=== PATIENT | female | born 1960 | race Caucasian/White ===

== ENCOUNTER → 2020-06-27 11:46 | Outpatient (CLI) | payer OTHER, SELFPAY ==
--- NOTE | ~2020-06-27 | XR_ITS ---
EXAMINATION: XR ankle RT min 3V DATE: 06/27/2020 12:47 INDICATION: Right foot and ankle pain TECHNIQUE: 1. Anteroposterior, mortise, additional oblique and lateral view of the right ankle were obtained. 2. Dorsoplantar, two oblique and lateral views of the right foot were obtained. COMPARISON: None. FINDINGS: Alignment of the foot and ankle is normal. No fracture or osteochondral lesion. Mild osteoarthritis a t a few of the interphalangeal joints. No ankle joint effusion. The soft tissues are unremarkable. IMPRESSION: 1. 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 Otherwise unremarkable right foot and ankle radiographs. Reviewed, dictated and finalized at location A. IMPRESSION: 1. 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 Otherwise unrema rkable right foot and ankle radiographs.
--- NOTE | ~2020-06-27 | XR_ITS ---
XR foot RT min 3V DATE: 06/27/2020 12:47 INDICATION: Right foot pain TECHNIQUE: 4 views COMPARISON: None FINDINGS: No fracture or dislocation, periosteal reaction or bone destruction. Joint spaces are prese rved. No erosive changes. IMPRESSION: Negative Reviewed, dictated and finalized at location A. IMPRESSION: Negative
== END ==
PROVIDERS: PCP Family Medicine; Visit Provider Family Medicine
DX: M25.571 Pain in right ankle and joints of right foot (principal); M19.071 Primary osteoarthritis, right ankle and foot
CPT/HCPCS: 73610; 73630

== ENCOUNTER 2021-09-28 00:30 | Day surgery (SDC) | payer OTHER, SELFPAY ==
[2021-09-16 15:07] VITALS: BMI 24.9
--- NOTE | 2021-09-26 09:41 | PM.HPGS ---
History of Present Illness History of Present Illness Consent: Risks, benefits, and alternatives have been discussed and questions answered. Patient agrees to proceed with procedure. Chief complaint: hx of colon polyps Narrative: Belen Wayne is a 60 year old female referred for colon cancer screening. She has a history of adenomatous polyp Review of Systems Review of Systems: All systems reviewed & are unremarkable except as noted in HPI and below PMFSH Past Medical History Medical History Emphysema lung History of vaginal delivery Open angle primary glaucoma Surgical History Surgical History History of cholecystectomy History of umbilical hernia repair Status post hysterectomy Status post laparoscopic cholecystectomy Status post tonsillectomy Family History Family History Grandparent Carcinoma of colon Father Family history of lung cancer Other Family history of malignant neoplasm Social History Social History Smoking status: Never smoker Second hand tobacco smoke exposure: No Alcohol intake: current Substance use: never Substance use type: does not use Living arrangements: with family Gender identity (if verbalized by the patient): Female Spiritual care concerns: No Meds Home Medications and Allergies Home Medications Medication Instructions Recorded Confirmed Type bimatoprost 0.01 % eye drops 1 drop EACH EYE DAILY 09/10/19 09/28/21 History cetirizine 10 mg tablet 10 mg PO DAILY 09/10/19 09/28/21 History hydroxychloroquine 200 mg tablet 200 mg PO DAILY 09/10/19 09/28/21 History timolol maleate 0.5 % eye drops 1 drop EACH EYE Q12H 09/10/19 09/28/21 History ascorbate calcium (vitamin C) 500 500 mg PO DAILY 12/29/20 09/28/21 History mg capsule magnesium hydroxide 400 mg (170 mg 400 mg PO DAILY 12/29/20 09/28/21 History magnesium) chewable tablet albuterol sulfate 90 mcg/actuation 1 inh INHALATION Q4H PRN #6.7 g 02/05/21 09/28/21 Rx aerosol inhaler sodium,potassium,mag sulfates 17.5 See Rx Instructions PO .COMPLEX 08/25/21 09/28/21 Rx gram-3.13 gram-1.6 gram oral soln #354 ml phentermine 15 mg capsule 15 mg PO DAILY #30 cap 09/07/21 09/28/21 Rx biotin 10,000 mcg PO DAILY 09/16/21 09/28/21 History cholecalciferol (vitamin D3) 10,000 unit PO WEEKLY 09/16/21 09/28/21 History [Vitamin D3] pantoprazole 40 mg PO DAILY 09/16/21 09/28/21 History potassium 99 mg PO DAILY 09/16/21 09/28/21 History Allergies Allergy/AdvReac Type Severity Reaction Status Date / Time amoxicillin Allergy Intermediate Itching Verified 09/28/21 07:29 celecoxib Allergy Intermediate Hives Verified 09/28/21 07:29 cobalt Allergy Intermediate Hives Verified 09/28/21 07:29 cranberry Allergy Intermediate Hives Verified 09/28/21 07:29 diphenhydramine Allergy Intermediate Itching Verified 09/28/21 07:29 nickel Allergy Intermediate Hives Verified 09/28/21 07:29 thimerosal Allergy Intermediate Hives Verified 09/28/21 07:29 Exam Const: General: alert Orientation/consciousness: patient oriented x3 Resp: Auscultation: clear to auscultation bilaterally Cardio: Rhythm: regular rhythm GI: GI Palp: Yes Soft to palpation and No Tenderness to palpation present (GI) Neuro: General: patient oriented x3 Assessment and Plan Assessment and plan (1) Colon cancer screening: Code(s): Z12.11 - Encounter for screening for malignant neoplasm of colon Status: Acute Assessment and Plan: Colonoscopy with possible biopsy or polypectomy or cautery or injection of substances.
[2021-09-28 07:28] VITALS: BP 134/76; PULSE 84; RESP 18; TEMP 35.9; O2SAT 98; BMI 24.3
[2021-09-28] MEDS: LACTATED RINGERS 1,000 ML 150 ML IV CONT (07:48)
--- NOTE | 2021-09-28 07:51 | WPDANESEPPF ---
Anes - Initial Pre Proc Eval Procedure: Operation Date: 09/28/21 08:30 Proposed Procedures p Screening Colonoscopy - Gray Daniel MD Date/Time: 09/28/21 07:51 Surgeon: Gray Daniel MD Pre Op Diagnosis: hx of colon polyps Patient Data Age: 60 Gender: F Height: 1.65 m Weight: 66.3 kg Last Vital Signs Temp 35.9 C L 09/28/21 07:28 Pulse 84 09/28/21 07:28 Resp 18 09/28/21 07:28 BP 134/76 09/28/21 07:28 Pulse Ox 98 09/28/21 07:28 Allergies Allergy/AdvReac Type Severity Reaction Status Date / Time amoxicillin Allergy Intermediate Itching Verified 09/28/21 07:29 celecoxib Allergy Intermediate Hives Verified 09/28/21 07:29 cobalt Allergy Intermediate Hives Verified 09/28/21 07:29 cranberry Allergy Intermediate Hives Verified 09/28/21 07:29 diphenhydramine Allergy Intermediate Itching Verified 09/28/21 07:29 nickel Allergy Intermediate Hives Verified 09/28/21 07:29 thimerosal Allergy Intermediate Hives Verified 09/28/21 07:29 Home Medications Medication Instructions Recorded Confirmed Type bimatoprost 0.01 % eye drops 1 drop EACH EYE DAILY 09/10/19 09/28/21 History cetirizine 10 mg tablet 10 mg PO DAILY 09/10/19 09/28/21 History hydroxychloroquine 200 mg tablet 200 mg PO DAILY 09/10/19 09/28/21 History timolol maleate 0.5 % eye drops 1 drop EACH EYE Q12H 09/10/19 09/28/21 History ascorbate calcium (vitamin C) 500 500 mg PO DAILY 12/29/20 09/28/21 History mg capsule magnesium hydroxide 400 mg (170 mg 400 mg PO DAILY 12/29/20 09/28/21 History magnesium) chewable tablet albuterol sulfate 90 mcg/actuation 1 inh INHALATION Q4H PRN #6.7 g 02/05/21 09/28/21 Rx aerosol inhaler sodium,potassium,mag sulfates 17.5 See Rx Instructions PO .COMPLEX 08/25/21 09/28/21 Rx gram-3.13 gram-1.6 gram oral soln #354 ml phentermine 15 mg capsule 15 mg PO DAILY #30 cap 09/07/21 09/28/21 Rx biotin 10,000 mcg PO DAILY 09/16/21 09/28/21 History cholecalciferol (vitamin D3) 10,000 unit PO WEEKLY 09/16/21 09/28/21 History [Vitamin D3] pantoprazole 40 mg PO DAILY 09/16/21 09/28/21 History potassium 99 mg PO DAILY 09/16/21 09/28/21 History Patient hx anesthesia problems: none Family hx anesthesia problems: none Results Review: All pre-operative results and documents have been reviewed as part of the pre-operative evaluation. PMFSH Past Medical History Medical History Emphysema lung History of vaginal delivery Open angle primary glaucoma Surgical History Surgical History History of cholecystectomy History of umbilical hernia repair Status post hysterectomy Status post laparoscopic cholecystectomy Status post tonsillectomy Family History Family History Grandparent Carcinoma of colon Father Family history of lung cancer Other Family history of malignant neoplasm Social History Social History Smoking status: Never smoker Second hand tobacco smoke exposure: No Alcohol intake: current Substance use: never Substance use type: does not use Living arrangements: with family Gender identity (if verbalized by the patient): Female Spiritual care concerns: No Anes - Eval Final PreProcedure Day of Procedure 09/28/21 07:51 Patient weight: normal Heart: regular rate and rhythm Lungs: clear to auscultation Airway: Mallampati scale class II Neurological: alert and oriented Last oral intake: >/= 8 hours ASA classification: II Emergent: no Anesthetic plan: proceed Anesthesia type and monitoring: general GIVS and standard monitoring Results Review: All pre-operative results and documents have been reviewed as part of the pre-operative evaluation. Informed Consent: The patient's anesthetic plan and its attendant risks and benefits were discussed with the patient/famil
[2021-09-28 08:40] VITALS: BP 88/50; PULSE 64; RESP 14; O2SAT 98
[2021-09-28 08:50] VITALS: BP 96/57; PULSE 56; RESP 15; O2SAT 100
[2021-09-28 09:00] VITALS: BP 119/76; PULSE 54; RESP 18; O2SAT 100
== END 2021-09-28 09:10 | disposition home or self-care (01) ==
PROVIDERS: PCP Family Medicine; Visit Provider Internal Medicine Gastroenterology
PROC: 0DJD8ZZ Inspection of Lower Intestinal Tract, Via Natural or Artificial Opening Endoscopic (ICD-10-PCS; CPT 45378; principal; 2021-09-28 08:30)
DX: Z12.11 Encounter for screening for malignant neoplasm of colon (principal); J43.9 Emphysema, unspecified; H40.1190 Primary open-angle glaucoma, unspecified eye, stage unspecified; Z90.49 Acquired absence of other specified parts of digestive tract; Z90.710 Acquired absence of both cervix and uterus; Z80.0 Family history of malignant neoplasm of digestive organs
CPT/HCPCS: 45378; J2704; J7120

== ENCOUNTER → 2022-08-11 15:27 | Outpatient (CLI) | payer OTHER, SELFPAY ==
--- NOTE | ~2022-08-11 | XR_ITS ---
XR hand RT min 3V DATE: 08/11/2022 15:36 INDICATION: Right hand pain TECHNIQUE: 3 views COMPARISON: None FINDINGS: No fracture or dislocation, periosteal reaction or bone destruction, erosive change or jono drocalcinosis. IMPRESSION: No significant abnormality Reviewed, dictated and finalized at location A. IMPRESSION: No significant abnormality
--- NOTE | ~2022-08-11 | XR_ITS ---
XR hand LT min 3V DATE: 08/11/2022 15:36 INDICATION: Right hand pain TECHNIQUE: 3 views COMPARISON: None FINDINGS: There is coronary the triscaphe joint. There is mild osteoarthritis at the first carpometac arpal joint, first metacarpophalangeal joint. No fracture or dislocation, periosteal reaction or bone destruction. IMPRESSION: Mild polyarticular osteoarthritis Reviewed, dictated and finalized at location A.
== END ==
PROVIDERS: PCP Family Medicine; Visit Provider Physician Assistant
DX: M79.642 Pain in left hand (principal); M79.641 Pain in right hand; M19.042 Primary osteoarthritis, left hand
CPT/HCPCS: 73130

== ENCOUNTER → 2023-12-08 15:18 | Outpatient (CLI) | payer OTHER, SELFPAY ==
--- NOTE | ~2023-12-08 | DEXA_ITS ---
Bone Density Report Name: CHEN JOSHI Age: 63 Sex: Female Ethnicity: White Date of : 1960 Indication: postmenopausal; screening for osteoporosis; hysterectomy; Referring Provider: CHALO CABALLERO Study: Bone densitometry was performed. Exam Date: December 08, 2023 Accession number: [id number] Bone Density: Region BMD T-score Z-score Classification AP Spine (L1-L4) 0.798 -2.3 -0.8 Osteopenia Femoral Neck (Left) 0.589 -2.3 -1.0 Osteopenia Total Hip (Left) 0.740 -1.7 -0.7 Osteopenia Femoral Neck (Right) 0.677 -1.6 -0.2 Osteopenia Total Hip (Right) 0.768 -1.4 -0.4 Osteopenia Total Hip Mean 0.754 -1.6 -0.6 Osteopenia World Health Organization criteria for BMD impression classify patients as: Normal (T-score at or above -1.0), Osteopenia (T-score between -1.0 and -2.5), or Osteoporosis (T-score at or below -2.5). 10-year Fracture Risk(1): Major Osteoporotic Fracture 10% Hip Fracture 1.6% Reported Risk Factors: [place] (), Neck BMD=0.589, BMI=22.6 (1) FRAX(R) Version 3.08. Fracture probability calculated for an untreated patient. Fracture probability may be lower if the patient has received treatment. Clinical Information Provided by Patient: Has used the following medications: Vitamin D Has the following medical conditions: Hysterectomy Patient maximum height was 65.0 Menopause Age: 34 No regular weight bearing exercise Does not regularly consume dairy products Drinks caffeinated beverages Onset of menses at age 13 Number of children 1 Impression: The patient has low bone mass, based on the Total Spine T-score. The patient has an estimated ten-year risk of hip fracture of 1.6% and an estimated ten-year risk of major fracture of 10%, based on the WHO FRAX algorithm. Discussion: BONE DENSITY IS LOW AT ONE OR MORE SKELETAL SITES. This patient's lowest T-score is low at one or more skeletal sites. It meets the World Health Organization's (WHO) criteria for ?low bone mass? (T-score between -1.0 and -2.5). The patient's 10-year risk of fracture as calculated by FRAX is less than the threshold where pharmacological therapy is recommended by the National Osteoporosis Foundation (NOF). However, all treatment decisions require clinical judgment and consideration of individual patient factors, including patient preferences, comorbidities, previous drug use, risk factors not captured in the FRAX model (e.g., frailty, falls, vitamin D deficiency, increased bone turnover, interval significant decline in bone density) and possible under or overestimation of fracture risk by FRAX. The patient should follow a healthful lifestyle (good nutrition with adequate calcium and vitamin D, and appropriate weight-bearing exercise). Follow-Up: Consider repeating this study in 2 to 3 years to reassess
== END ==
PROVIDERS: PCP Obstetrics & Gynecology; Visit Provider Obstetrics & Gynecology
DX: Z78.0 Asymptomatic menopausal state (principal); M85.89 Other specified disorders of bone density and structure, multiple sites
CPT/HCPCS: 77080

== ENCOUNTER 2024-04-09 13:10 | Outpatient (CLI) | payer OTHER, SELFPAY ==
--- NOTE | ~2024-04-09 | MM_ITS ---
EXAMINATION: MM screening [place] BI w angela HISTORY: Screening mammogram TECHNIQUE: Craniocaudal and mediolateral oblique 3-D tomosynthesis images were obtained and synthetic 2-D images were generated. CAD analysis was submitted and interpreted. COMPARISON: 11/04/2022, 11/02/2021 BREAST PARENCHYMAL COMPOSITION:Not Dense. There are scattered areas of fibroglandular density. FINDINGS: Stable right breast intramammary lymph node at the upper, outer aspect. No suspicious mass, calcification, or architectural distortion are identified in either breast to suggest malignancy. Th ere has been no suspicious interval change. IMPRESSION: No mammographic evidence of malignancy. Recommend routine screening mammography in one year. BI-RADS Category 2: Benign finding(s). Reviewed, dictated and finalized at location .
== END 2024-04-09 13:11 ==
LOC: MICIMG 13:11
PROVIDERS: PCP Family Medicine; Visit Provider Obstetrics & Gynecology
DX: Z12.31 Encounter for screening mammogram for malignant neoplasm of breast (principal)
CPT/HCPCS: 77063; 77067

== ENCOUNTER 2025-04-11 13:09 | Outpatient (CLI) | payer OTHER, SELFPAY ==
--- NOTE | ~2025-04-11 | MM_ITS ---
EXAMINATION: MM screening [place] BI w angela HISTORY: Screening mammogram, family history of breast cancer in her mother. TECHNIQUE: Craniocaudal and mediolateral oblique 3-D tomosynthesis images were obtained and synthetic 2-D images were generated. CAD analysis was submitted and interpreted. COMPARISON: 04/09/2024, 11/04/2022 11/02/2021 BREAST PARENCHYMAL COMPOSITION:Dense: The breasts are heterogeneously dense, which may obscure small masses. FINDINGS: No suspicious mass, calcification, or architectural distortion are identified in either ady ast to suggest malignancy. There has been no suspicious interval change. IMPRESSION: No mammographic evidence of malignancy. Recommend routine screening mammography in one year. BI-RADS Category 1: Negative Reviewed, dictated and finalized at location .
== END 2025-04-11 13:10 | disposition home or self-care (01) ==
LOC: MICIMG 13:09
PROVIDERS: PCP Family Medicine; Visit Provider Obstetrics & Gynecology
DX: Z12.31 Encounter for screening mammogram for malignant neoplasm of breast (principal)
CPT/HCPCS: 77063; 77067

== ENCOUNTER 2025-07-16 08:25 | Outpatient (CLI) | payer OTHER, SELFPAY ==
--- NOTE | ~2025-07-16 | XR_ITS ---
EXAMINATION: XR hip BI wo pelvis DATE: 07/16/2025 08:50 INDICATION: Pain specified hip TECHNIQUE: 4 images were obtained of the hips COMPARISON: None. FINDINGS: There is bowel gas and stool projecting over the pelvis which limits evaluation. Bone mineralization is within normal limits. Mild degenerative change in both hips. No fracture. No dislocation. IMPRESSION: 1. Mild degenerative change in the hips. If symptoms persist or worsen, consider a short-term follow-up study or MRI imaging for further assessment. Reviewed, dictated and finalized at location Q. IMPRESSION: 1. Mild degenerative change in the hips. If symptoms persist or worsen, consider a short-term follow-up study or MRI drea ging for further assessment.
--- NOTE | ~2025-07-16 | XR_ITS ---
EXAMINATION: XR lumbar spine 2-3V DATE: 07/16/2025 08:50 INDICATION: Low back pain, unspecified TECHNIQUE: 3 images of the lumbar spine were obtained. COMPARISON: None. FINDINGS: There is bowel gas and stool projecting over the pelvis which limits evaluation. Cholecystectomy clips are present. Moderate dextroconvex curvature of the lumbar spine. Subtle bony irregularity of the superior and inferior endplates of the L1 and L2 vertebral bodies which may be due to sequelae from degenerative change versus compression fractures of indeterminate age. Correlate for point tenderness. Mild degenerative change in the lower lumbar spine. Grade 1 anterolisthesis of L5 on S1. IMPRESSION: 1. Subtle bony irregularity of the superior and inferior endplates of the L1 and L2 vertebral bodies which may be due to sequelae from degenerative change versus compression fractures of indeterminate age. Correlate for point tenderness. 2. Mild degenerative change in the lower lumbar spine. 3. Grade 1 anterolisthesis of L5 on S1. If symptoms persist or worsen, consider MRI imaging for further assessment. Reviewed, dictated and finalized at location Q. IMPRESSION: 1. Subtle bony irregularity of the superior and inferior endplates of the L1 an d L2 vertebral bodies which may be due to sequelae from degenerative change enedelia gray compression fractures of indeterminate age. Correlate for point tenderness. 2. Mild degenerative change in the lower lumbar spine. 3. Grade 1 anterolisthesis of L5 on S1. If symptoms persist or worsen, consider MRI imaging for further assessment.
== END 2025-07-16 08:26 | disposition home or self-care (01) ==
PROVIDERS: PCP Family Medicine
DX: M16.0 Bilateral primary osteoarthritis of hip (principal); M47.896 Other spondylosis, lumbar region; M43.17 Spondylolisthesis, lumbosacral region
CPT/HCPCS: 72100; 73521